=== PATIENT | male | born 1985 ===

== ENCOUNTER 2021-12-27 10:35 | Emergency (ER) | payer OTHER ==
[2021-12-27] MEDS ORDERED: SODIUM CHLORIDE 0.9% 500 ML INFUS.BAG IV ONE ×2 (10:52→12:29)
[2021-12-27] MEDS ORDERED: ACETAMINOPHEN 1000 MG/100 ML BAG IVPB ONE (10:52)
[2021-12-27 10:56] VITALS: BP 117/76; PULSE 71; TEMP 98; BMI 27.8
[2021-12-27] MEDS ORDERED: ACETAMINOPHEN INJECTION 100 ML IVPB ONE (11:03)
[2021-12-27 11:41] LABS: HEMATOCRIT 41.9 % (35.4-49); HEMOGLOBIN 14.9 G/dL (11.7-16.9); MCH 30.7 pg (25.7-33.7); MCHC 35.5 g/dl (32.0-35.9); MEAN CELL VOLUME 86.5 fl (80-96); MEAN PLT VOLUME 8.3 fl (7.5-11.1); RBC 4.84 10^6/uL (4.00-5.60); RDW 13.7 % (11.9-15.9); WHITE BLOOD COUNT 12.4 10^3/uL (4.0-10.8)
[2021-12-27 11:44] LABS: INR 1.12 (0.83-1.09); PROTHROMBIN TIME (PATIENT) 12.9 SEC (9.7-13.0)
[2021-12-27 11:47] LABS: ACTIVATED PTT 29.1 SECONDS (25.2-36.5)
[2021-12-27 11:48] LABS: ALBUMIN 4.6 g/dl (3.4-5.0); CALCIUM 9.1 mg/dl (8.5-10); CREATININE 0.8 mg/dl (0.55-1.3)
[2021-12-27] MEDS ORDERED: METHOCARBAMOL 500 MG TABLET PO ONE (12:46)
[2021-12-27] MEDS ORDERED: KETOROLAC TROMETHAMINE 30 MG/1 ML VIAL IVPUSH ONE (12:46)
[2021-12-27] MEDS ORDERED: METHOCARBAMOL 500 MG TABLET ONE (12:48)
[2021-12-27] MEDS ORDERED: KETOROLAC TROMETHAMINE 30 MG/1 ML VIAL ONE (12:48)
== END 2021-12-27 14:28 | disposition home or self-care (01) ==
LOC: FER 10:35
PROC: 3E033GC Introduction of Other Therapeutic Substance into Peripheral Vein, Percutaneous Approach (ICD-10-PCS; principal; 2021-12-27)
DX: S06.0X0A Concussion without loss of consciousness, initial encounter (principal); V27.4XXA Motorcycle driver injured in collision with fixed or stationary object in traffic accident, initial encounter
CPT/HCPCS: 36415; 70450-TC; 71045-TC-FY; 72125-TC; 72170-TC-FY; 73030-TC-RT-FY; 73070-TC-RT-FY; 73130-TC-LT-FY; 73130-TC-RT-FY; 76604; 76705-TC; 80053; 85025; 85610; 85730; 86850; 86900; 86901; 93308; 99285-25